=== PATIENT | male | born 1950 | race Caucasian/White ===

== ENCOUNTER 2017-05-10 05:17 | Emergency (ER) | payer MEDICARE ==
[2017-05-10] MEDS ORDERED: SODIUM CHLORIDE 0.9% 500 ML IV ONE (05:24)
[2017-05-10] MEDS ORDERED: ONDANSETRON HCL IV 4 MG/2 ML VIAL IV ONE (05:24)
[2017-05-10] MEDS ORDERED: MORPHINE SULFATE 5 MG/ML PFS IVP ONE (05:25)
[2017-05-10] MEDS ORDERED: KETOROLAC 30 MG/ML VIAL IVP ONE (05:25)
--- NOTE | 2017-05-10 05:30 | Emergency Department Record ---
History of Present Illness - General Chief complaint: Flank Pain Stated complaint: FLANK PAIN Time Seen by Provider: 05/10/17 05:18 Source: Patient, Family Mode of Arrival: Ambulatory Limitations: No limitations - History of Present Illness Initial comments: 66 yo male presents with right flank pain since about 1 am. The pain is sharp and radiates around the side. No fever or chills. The pain does causes nausea and he vomited. He does have a history of renal stones multiple times in the past that usually pass on there own. No current urologist. No chest or abdominal pain. No rash. No scrotal or testicular pain. PCP is the [facility]. MD Complaint: Other (right Flank pain) -: Hour(s) (4) Location: Right flank Radiation: Back Severity: Severe Quality: Sharp Consistency: Constant Improves with: None Worsens with: None Reports: Other (Nausea and vomiting) - Related Data Previous Rx's Medication Instructions Recorded Ondansetron [Zofran Odt] 4 mg PO Q8H PRN #10 tab.rapdis 05/10/17 Allergies Allergy/AdvReac Type Severity Reaction Status Date / Time No Known Allergies Allergy PT UNSURE Verified 05/10/17 05:37 OF REACTION Review of Systems Constitutional: Denies: Chills, Fever, Malaise, Weakness Eyes: Denies: Eye discharge, Eye pain, Photophobia ENT: Denies: Congestion, Throat pain Respiratory: Denies: Cough, Dyspnea, Hemoptysis, Stridor, Wheezes Cardiovascular: Denies: Chest pain, Palpitations, Syncope Endocrine: Denies: Fatigue Gastrointestinal: Reports: Nausea, Vomiting. Denies: Abdominal pain, Diarrhea Genitourinary: Denies: Dysuria, Frequency, Hematuria, Testicular pain Musculoskeletal: Reports: As per HPI, Back pain. Denies: Arthralgia, Myalgia, Neck pain Skin: Denies: Bruising, Change in color, Rash Neurological: Denies: Headache, Vertigo Psychiatric: Denies: Anxiety Hematological/Lymphatic: Denies: Blood Clots, Easy bleeding, Easy bruising, Swollen glands Physical Exam - General General Appearance: Alert, Oriented x3, Cooperative, No acute distress Limitations: No limitations - Head Head exam: Normal inspection - Eye Eye exam: Normal appearance, PERRL. negative: Conjunctival injection, Periorbital swelling - ENT ENT exam: Normal exam, Mucous membranes moist Ear exam: Normal external inspection Nasal Exam: Normal inspection - Neck Neck exam: Normal inspection - Respiratory Respiratory exam: Normal lung sounds bilaterally. negative: Respiratory distress - Cardiovascular Cardiovascular Exam: Regular rate, Normal rhythm, Normal heart sounds - GI/Abdominal GI/Abdominal exam: Soft. negative: Distended, Guarding, Rebound, Rigid, Tenderness - Rectal Rectal exam: Deferred - exam: Deferred - Extremities Extremities exam: Normal inspection, Full ROM, Normal capillary refill. negative: Tenderness - Back Back exam: Reports: Normal inspection, Full ROM. Denies: CVA tenderness (R), CVA tenderness (L), Muscle spasm, Paraspinal tenderness, Rash noted, Tenderness , Vertebral tenderness - Neurological Neurological exam: Alert, Normal gait, Oriented X3. negative: Motor sensory deficit - Psychiatric Psychiatric exam: Normal affect, Normal mood - Skin Skin exam: Dry, Intact, Normal color, Warm Course - Reevaluation(s) Reevaluation #1: 05/10/17 05:49 The CBC reviewed WBC is 12.8 UA with small blood EMR reviewed from 05/03 The CR and GFR are normal. Toradol ordered 05/10/17 06:00 05/10/17 06:10 CT demonstrated a 4mm distal right ureteral stone immediately proximal to the right UVJ. Multiple non obstructing stones in both kidneys. Diverticulosis without itis. Small infrarenal AAa at 3.3cm 05/10/17 06:14 I discussed the results with the patient. The patient's pain is under very good control He will be DC home with instructions for return and close follow up Medical Decision Making - Lab Data Result diagrams: 05/10/17 05:25 05/10/17 05:25 Disposition Disposition: Discharge Clinical Impression: Renal calculus or stone Disposition: Home, Self-Care Condition: (1) Good Instructions: Renal Colic (ED) Additional Instructions: Return if you have uncontrolled pain, fever or vomiting. Call your family doctor for close follow up You have been referred to [facility] for this stone and the fact that you have multiple other stones Prescriptions: Ondansetron [Zofran Odt] 4 mg PO Q8H PRN #10 tab.rapdis PRN Reason: Nausea Referrals: PADMINI COX M.D. [MEDICAL DOCTOR] - [facility] [Provider Group] Forms: Patient Portal Access Time of Disposition: 06:22 Quality - Quality Measures Quality Measures: N/A - Blood Pressure Screening Does Patient Have Any of the Following: No Blood Pressure Classification: Hypertensive Reading Systolic Measurement: 144 Diastolic Measurement: 92 Screening for High Blood Pressure: < Pre-Hypertensive BP, F/U Documented > [ G8950] Pre-Hypertensive Follow-up Interventions: Referral to alternative/primary care provider.
[2017-05-10 05:34] LABS: BASO % 0.2 % (0-6); EOS % 0.2 % (0-6); HEMATOCRIT 48.8 % (42.0-52.0); HEMOGLOBIN 17.1 gm/dl (14.0-18.0); LYMPH % 9.6 % (16-45); MEAN CORPUSCULAR HEMOGLOBIN 32.9 pg (27-33); MEAN PLATELET VOLUME 11.4 fl (7.4-10.4); MONO % 4.1 % (0-9); PLATELET COUNT 172 K/uL (130-400); RED BLOOD COUNT 5.19 M/uL (4.40-5.70); WHITE BLOOD COUNT W/O DIFF 12.8 K/uL (4.2-12.2)
[2017-05-10 05:45] LABS: URINE APPEARANCE CLEAR; URINE BILIRUBIN NEGATIVE (NEGATIVE); URINE BLOOD SMALL (NEGATIVE); URINE COLOR YELLOW; URINE GLUCOSE (UA) NEGATIVE (NEGATIVE); URINE KETONE NEGATIVE (NEGATIVE); URINE LEUKOCYTE ESTERASE NEGATIVE (NEGATIVE); URINE NITRITE NEGATIVE (NEGATIVE); URINE PROTEIN NEGATIVE (NEGATIVE); URINE UROBILINOGEN 0.2 E.U./dL (0.20 - 1.00)
[2017-05-10 05:47] LABS: URINE BACTERIA NONE SEEN; URINE EPITHELIAL CELLS 0 - 2 (FEW); URINE RBC 0 - 2 (NONE SEEN); URINE WBC 0 - 2 (0-2/hpf)
[2017-05-10 05:48] LABS: BLOOD UREA NITROGEN 17 mg/dL (8-23); CREATININE 0.8 mg/dL (0.7-1.2); EST GLOMERULAR FILTRATION RATE > 60 mL/min; GLUCOSE,RANDOM 136 mg/dL (74-109)
[2017-05-10] MEDS ORDERED: TAMSULOSIN HCL 0.4 MG CAP.ER.24H PO ONE (06:08)
--- NOTE | 2017-05-11 07:50 | CT SCAN REPORT ---
EXAM: CT OF THE ABDOMEN AND PELVIS WITHOUT CONTRAST HISTORY: RIGHT FLANK PAIN. TECHNIQUE: CT of the abdomen and pelvis was performed without oral or IV contrast. This limits evaluation of bowel and solid visceral organs. Comparison: None. FINDINGS: Limited evaluation of the lung bases shows scarring in the right middle lobe. The osseous structures are grossly intact. Small hiatal hernia. Limited evaluation of the liver, spleen, adrenal glands, and pancreas is unremarkable. The gallbladder is present. Multiple punctate nonobstructing renal calculi bilaterally. In addition, there is moderate right sided hydronephrosis and hydroureter, secondary to a 3 mm right UVJ calculus. Normal appendix. Moderate stool throughout the colon. Colonic diverticulosis without CT evidence for diverticulitis. The urinary bladder is incompletely distended. Fat containing inguinal hernias bilaterally. Multiple calcifications of the prostate. Correlate with PSA levels. IMPRESSION: 1. MULTIPLE NONOBSTRUCTING RENAL CALCULI BILATERALLY. 2. MODERATE RIGHT SIDED HYDRONEPHROSIS AND HYDROURETER SECONDARY TO A 3 MM RIGHT UVJ CALCULUS. 3. COLONIC DIVERTICULOSIS WITHOUT CT EVIDENCE FOR DIVERTICULITIS. 4. NOT STATED PREVIOUSLY, THERE IS MILD ECTASIA OF THE INFRARENAL ABDOMINAL AORTA MEASURING 2.8 X 2.8 CM. IN ADDITION, THERE IS A SMALL FAT CONTAINING ANTERIOR ABDOMINAL WALL HERNIA NEAR THE MIDLINE. JOB NUMBER: [id number] MTDD
== END 2017-05-10 06:30 | disposition home or self-care (01) ==
LOC: ER 05:17
DX: N13.2 Hydronephrosis with renal and ureteral calculous obstruction (principal); I71.4 Abdominal aortic aneurysm, without rupture; R11.2 Nausea with vomiting, unspecified; Z87.442 Personal history of urinary calculi
CPT/HCPCS: 99284 ×2; 96374; 96375; 96361; 80048; 81001; 85027; 74176; J1885; J2405

== ENCOUNTER 2018-04-22 08:27 | Day surgery (SDC) | payer BC ==
[~2018-04-22 08:27] MED LIST: ACETAMINOPHEN 1,000 MG/100 ML BTL IV ONE; CEFAZOLIN 2 Gram 2 GM/50 ML BAG IVPB ONE
[2018-04-22] MEDS ORDERED: ROPIVACAINE HCL (NAROPIN) /PF 5MG/ML 20ML VIAL IV ONE (08:28)
[2018-04-22] MEDS ORDERED: HYDROMORPHONE HCL 2 MG/ML VIAL IV ONE (08:28)
[2018-04-22] MEDS ORDERED: BUPIVACAINE 0.25% W/EPI MPF 30ML VIAL IVP ONE (08:28)
[2018-04-22] MEDS ORDERED: LABETALOL HCL 5MG/ML, 20ML VIAL IV ONE (08:28)
[2018-04-22] MEDS ORDERED: LIDOCAINE 2% MDV (20MG/ML) 20ML VIAL IV ONE (08:28)
[2018-04-22] MEDS ORDERED: SEVOFLURANE 250 ML INH ONE (08:28)
[2018-04-22] MEDS ORDERED: HYDROCODONE/APAP 5/325MG TABLET PO ONE (08:28)
[2018-04-22] MEDS ORDERED: **ER** KETAMINE HCL 500MG/10ML VIAL IV ONE (08:28)
[2018-04-22] MEDS ORDERED: DEXAMETHASONE 4 MG/ML 1ML VIAL IVP ONE (08:28)
[2018-04-22] MEDS ORDERED: PROPOFOL 10 MG/ML VIAL IV ONE (08:28)
[2018-04-22 09:20] LABS: BASO % 0.3 % (0-6); EOS % 2.8 % (0-6); GRAN % 50.3 % (47-80); HEMATOCRIT 49.3 % (42.0-52.0); HEMOGLOBIN 16.2 gm/dl (14.0-18.0); MEAN CELL VOLUME 96.3 fl (81-97); MEAN CORPUSCULAR HEMOGLOBIN 31.6 pg (27-33); MEAN CORPUSCULAR HGB CONC 32.9 g/dl (32-36); MEAN PLATELET VOLUME 11.4 fl (7.4-10.4); MONO % 11.6 % (0-9); PLATELET COUNT 186 K/uL (130-400); RED BLOOD COUNT 5.12 M/uL (4.40-5.70); RED CELL DISTRIBUTION WIDTH 13.1 % (11.5-14.5); WHITE BLOOD COUNT W/O DIFF 7.6 K/uL (4.2-12.2)
[2018-04-22 09:40] LABS: BLOOD UREA NITROGEN 16 mg/dL (8-23); CREATININE 0.6 mg/dL (0.7-1.2); EST GLOMERULAR FILTRATION RATE > 60 mL/min; GLUCOSE,RANDOM 106 mg/dL (74-109)
--- NOTE | 2018-04-24 08:55 | Operative Note ---
DATE OF SURGERY: 04/22/2018 Surgeon: Bryn Solorio DO PREOPERATIVE DIAGNOSIS: Incarcerated ventral hernia. POSTOPERATIVE DIAGNOSIS: Incarcerated ventral hernia. OPERATION: Open ventral herniorrhaphy with mesh. Indication: The patient is a 67-year-old male who has had a long-standing ventral hernia. This was asymptomatic until recently when it became slightly larger and painful for him. We did discuss repair. Risks, benefits, and alternatives were discussed. Risks include bleeding, infection, acute or chronic pain, recurrence, injury to underlying visceral structures. He understood this fully. Thereafter, consent was signed and questions answered. PROCEDURE: The patient was taken to the operating room and placed in a supine position. General anesthesia was administered per the department of anesthesia. The patient's abdomen was shaved of hair and prepped and draped in the usual fashion. The over the hernia was anesthetized with a total of 10 mL of 0.25% Sensorcaine with epinephrine. A 4.5 cm incision was made. This was carried down through the subcutaneous tissues until the hernia sac was encountered. Clean circumferential fascial edges were obtained. Due to the incarcerated nature, I was unable to reduce this. Therefore, the hernia sac was then amputated and passed off the field. The hernia measured about 1.5 cm. At this time, an [address] mesh was obtained. This was placed in an intraperitoneal position. We had excellent overlap of the hernia. There was no bowel interfacing the hernia between the hernia and the peritoneum. The upper skirt was sutured to the anterior rectus fascia with 2-0 Vicryl in 6 spots. The tails overlapped the fascia and were sutured in place as well. At this time, the subcutaneous tissue was closed with 3-0 Vicryl, skin was closed with 4-0 Vicryl. He was taken to the recovery room in satisfactory condition. FINDINGS AT THE TIME OF SURGERY: Incarcerated ventral hernia containing preperitoneal fat repaired as above. CC: DO KRISS Rivera
== END 2018-04-22 11:33 | disposition home or self-care (01) ==
LOC: SUR 08:27
PROVIDERS: ATTEND Surgery
DX: K43.6 Other and unspecified ventral hernia with obstruction, without gangrene (principal); K21.9 Gastro-esophageal reflux disease without esophagitis
CPT/HCPCS: 80048; 85025

== ENCOUNTER 2019-09-01 20:51 | Emergency (ER) | payer BC ==
[2019-09-01] MEDS ORDERED: PROPARACAINE HCL OPTH 15ML BTL OPTH ONE (20:53)
--- NOTE | 2019-09-01 21:04 | Emergency Department Record ---
History of Present Illness - General Chief complaint: Eye Problem Stated complaint: RT EYE IRRITATION/FOREIGN OBJECT Time Seen by Provider: 09/01/19 20:53 Source: Patient Mode of Arrival: Ambulatory Limitations: No limitations - History of Present Illness Initial comments: 68 yo female presents to ED for evaluation of irritation and possible FB to the right eye. Patient denies any recent grinding, working with metal, or outdoors where a FB could have flown into the eye. Patient reprots tearing to the right eye, denies pain with blinking. Patient reports mild "blurry" vision, denies trauma or injury to the eye. chief complaint: Eye redness Onset/Timin -: Days(s) Onset Description: Awoke with symptoms Location: Right eye Place: Home If Injury: None Eye Symptoms: Blurry vision, Redness Severity: Moderate Severity scale (1-10): 5 If Pain, Quality: Aching Consistency: Getting worse Context: Sore throat Treatments Prior to Arrival: None - Related Data Visual acuity (L) = 20/: 20 Visual acuity (R) = 20/: 50 With correction: Yes Home Medications Medication Instructions Recorded Confirmed Last Taken No Home Med [NO HOME MEDS] 09/01/19 09/01/19 Unknown Allergies Allergy/AdvReac Type Severity Reaction Status Date / Time No Known Allergies Allergy PT UNSURE Verified 09/01/19 20:56 OF REACTION Travel/Exposure Screening - Travel/Exposure Within Last 30 Days Have you traveled within the last 30 days?: No - Travel/Exposure Within Last Year Have you traveled outside the [place] in the last year?: No - Additonal Travel/Exposure Details Have you been exposed to anyone with a communicable illness?: No - Travel Symptoms Symptom Screening: None Review of Systems Constitutional: Denies: Chills, Fever, Malaise, Night sweats Eyes: Reports: Vision change. Denies: Eye discharge, Eye pain ENT: Denies: Congestion, Ear pain, Epistaxis Respiratory: Denies: Cough, Dyspnea Cardiovascular: Denies: Chest pain, Dyspnea on exertion Endocrine: Denies: Fatigue, Heat or cold intolerance Gastrointestinal: Denies: Abdominal pain, Nausea, Vomiting Genitourinary: Denies: Incontinence, Retention Musculoskeletal: Denies: Arthralgia, Back pain Skin: Denies: Bruising, Change in color Neurological: Denies: Abnormal gait, Confusion, Headache, Seizure Psychiatric: Denies: Anxiety, Suicidal thoughts Hematological/Lymphatic: Denies: Anemia, Blood Clots Past Medical History - SOCIAL HISTORY Smoking Status: Former smoker Alcohol Use: Rare Drug Use: None - RESPIRATORY Hx Respiratory Disorders: No - CARDIOVASCULAR Hx Cardio Disorders: Yes Hx Hypotension: Yes - NEURO Hx Neuro Disorders: No - GI Hx GI Disorders: Yes Hx Reflux: Yes Hx of Polyps: Yes - Hx Genitourinary Disorders: Yes Hx Kidney Stones: Yes (last one 1 yr ago) - ENDOCRINE Hx Endocrine Disorders: No - MUSCULOSKELETAL Hx Musculoskeletal Disorders: Yes Hx Arthritis: Yes (hands) - PSYCH Hx Psych Problems: No - HEMATOLOGY/ONCOLOGY Hx Hematology/Oncology Disorders: No Family Medical History Any Significant Family History?: Yes Hx Cancer: Father *Cancer Comment: lung cancer Hx HTN: Father, Brother/Sister Hx Resp Disorders: Father, Brother/Sister *Resp Comment: lung cancer, brother-copd Physical Exam - General General Appearance: Alert, Oriented x3, Cooperative, Mild distress Limitations: No limitations - Head Head exam: Atraumatic, Normocephalic, Normal inspection Head exam detail: negative: Abrasion, Contusion, Gillette's sign, General tenderness, Hematoma, Laceration - Eye Eye exam: PERRL, Conjunctival injection, Other (Mild injection to the sclera right eye, no FB identified on flourescien staining, no corneal abrasion is noted on examination.). negative: Periorbital swelling, Periorbital tenderness, Scleral icterus With correction: Yes - ENT Ear exam: negative: Auricular hematoma, Auricular trauma Nasal Exam: negative: Active bleeding, Discharge, Dried blood, Foreign body Mouth exam: negative: Drooling, Laceration, Muffled voice, Tongue elevation - Neck Neck exam: Normal inspection. negative: Meningismus, Tenderness - Respiratory Respiratory exam: Normal lung sounds bilaterally. negative: Rales, Respiratory distress, Rhonchi, Stridor - Cardiovascular Cardiovascular Exam: Regular rate, Normal rhythm, Normal heart sounds - GI/Abdominal GI/Abdominal exam: Soft. negative: Rebound, Rigid, Tenderness - Rectal Rectal exam: Deferred - exam: Deferred - Extremities Extremities exam: Normal inspection, Full ROM. negative: Tenderness - Back Back exam: Denies: CVA tenderness (R), CVA tenderness (L) - Neurological Neurological exam: Alert, Normal gait, Oriented X3 - Psychiatric Psychiatric exam: Normal affect, Normal mood - Skin Skin exam: Normal color. negative: Abrasion Type of lesion: negative: abrasion Course Vital Signs 09/01/19 20:58 Pulse Rate [ 68 Right] Respiratory 20 Rate Blood Pressure 149/99 [Right Arm] Pulse Ox 99 - Reevaluation(s) Reevaluation #1: 09/01/19 21:11 Examination of the right eye does not reveal evidence for corneal abrasion, FB on examination. Pupil is reactive on examination, there is mild injection of the sclera on examination. EOMI, no evidence for acute angle glaucoma is present on exam. No FB is present on eversion of the upper/lower lids on examination. Patient appears stable for discharge on Gentamicin eye drops as directed. Disposition Disposition: Discharge Clinical Impression: Conjunctivitis Qualifiers: Conjunctivitis type: acute Acute conjunctivitis type: unspecified Laterality: right Qualified Code(s): H10.31 - Unspecified acute conjunctivitis, right eye Disposition: Home, Self-Care Condition: (2) Stable Instructions: Conjunctivitis (ED) Additional Instructions: Return to ED if your symptoms worsen or if you have any concerns. Gentamicin drops as directed. Follow-up with your family doctor in 3-5 days as directed. Forms: Patient Portal Access Time of Disposition: 21:04 Quality - Quality Measures Quality Measures: N/A - Blood Pressure Screening Does Patient Have Any of the Following: No Blood Pressure Classification: Hypertensive Reading Systolic Measurement: 149 Diastolic Measurement: 99 Screening for High Blood Pressure: < First Hypertensive BP, F/U Documented > [G8950] First Hypertensive Follow-up Interventions: Referral to alternative/primary care provider.
[2019-09-01] MEDS ORDERED: GENTAMICIN SULFATE 0.3% OPTH 5 ML BTL OPTH ONE (21:08)
[2019-09-01] MEDS ORDERED: GENTAMICIN SULFATE 0.3% OPTH 5 ML BTL OPTH SCH (21:15)
== END 2019-09-01 21:20 | disposition home or self-care (01) ==
LOC: ER 20:51
DX: H10.31 Unspecified acute conjunctivitis, right eye (principal); Z87.891 Personal history of nicotine dependence
CPT/HCPCS: 99283